=== PATIENT | female | born 1955 | race Caucasian/White ===

== ENCOUNTER 2018-03-06 12:14 | Day surgery (SDC) | payer BC ==
[~2018-03-06 12:14] MED LIST: Buffered Lidocaine 0.9% SYRIN* 5 ML/SYR SYRINGE INTRADERM ONE; Dexamethasone IV* 4 MG/ML 1 ML (4 MG) IV SLOW PU ONE; Famotidine IV* 10 MG/ML 2 ML (20 mg) IV ONE
[2018-03-06] MEDS ORDERED: Famotidine IV* 10 MG/ML 2 ML (20 mg) ONE (12:16)
[2018-03-06] MEDS ORDERED: Buffered Lidocaine 0.9% SYRIN* 5 ML/SYR SYRINGE ONE (12:16)
[2018-03-06] MEDS ORDERED: ceFAZolin 2 GM in NS PREMIX(*) 2 GM/100 ML BAG IVPB ONE (12:16)
[2018-03-06] MEDS ORDERED: Dexamethasone IV* 4 MG/ML 1 ML (4 MG) ONE (12:16)
[2018-03-06] MEDS ORDERED: fentaNYL* 50 MCG/ML 2 ML VIAL (100 MCG VIAL) ONE (12:44)
[2018-03-06] MEDS ORDERED: Midazolam* 1 MG/ML 2 ML VIAL (2 MG) ONE (12:44)
[2018-03-06] MEDS ORDERED: Lidocain 1% EPI 1:100,000 * 30 ML MDV ONE (13:12)
[2018-03-06] MEDS ORDERED: Lidocaine 2% PF * 5 ML VIAL ONE (13:59)
[2018-03-06] MEDS ORDERED: Propofol* 10 MG/ML 20 ML BTL IV PUSH ONE (13:59)
[2018-03-06] MEDS ORDERED: DiMENhydriNATE IV* 50 MG/ML VIAL IV PUSH PRN (14:08)
[2018-03-06] MEDS ORDERED: oxyCODONE/Acetamin 5/325 MG* TAB PO PRN (14:08)
[2018-03-06] MEDS ORDERED: Acetaminophen TAB* 325 MG PO PRN (14:08)
[2018-03-06] MEDS ORDERED: fentaNYL* 50 MCG/ML 2 ML VIAL (100 MCG VIAL) IV PRN (14:08)
[2018-03-06] MEDS ORDERED: Naloxone* 0.4 MG/ML 1 ML VIAL IV PRN (14:08)
[2018-03-06] MEDS ORDERED: Ondansetron INJ* 2 MG/ML VIAL IV PRN (14:08)
--- NOTE | 2018-03-06 14:36 | BRIEFOPN ---
Brief Operative Note - Surgery Procedures: Procedures Pre-OP Diagnoses: uterine ca Post-op Diagnosis: same Procedure: Insertion of powerport Surgeon: Jace Asst: none Anethesia: local, MAC EBL: minimal IVF: minimal Specimen: none Drains: none 8Fr single lumen power port via R SCV
--- NOTE | 2018-03-06 14:52 | RAD ---
INDICATION: chest port placement COMPARISONS: None relevant TECHNIQUE: Fluoroscopy was provided for a vascular access procedure. Total fluoroscopy time is: 41.6 seconds FINDINGS: A right-sided chest port is noted from a subclavian approach with the tip overlying the superior vena cava. IMPRESSION: FLUOROSCOPY WAS PROVIDED FOR A VASCULAR ACCESS PROCEDURE CPT II Codes: G9500
[2018-03-06 15:17] VITALS: BP 122/62
--- NOTE | 2018-04-01 00:19 | OP ---
CC: [facility] * DATE OF OPERATION: 03/06/18 - SDS DATE OF : 55 SURGEON: Kapil Mccormick MD HEAT TREAT TECHNICIAN: None. ANESTHESIA: Local MAC. PRE-OP DIAGNOSIS: Uterine cancer. POST-OP DIAGNOSIS: Uterine cancer. OPERATIVE PROCEDURE: Insertion of PowerPort. ESTIMATED BLOOD LOSS: Minimal. SPECIMEN: None. IMPLANTS: 8-Mac[place] single-lumen PowerPort inserted via the right subclavian vein. DESCRIPTION OF PROCEDURE: The patient was identified in the preoperative area, I marked, and brought to the operating room, placed on the operating table in the supine position. Preoperative antibiotics were given. Sequential devices were placed on bilateral lower extremities. Gentle sedation was given. The patient's right upper chest, neck were prepped and draped in a standard surgical fashion. A time-out was performed. Right subclavian vein was accessed, wire inserted and under fluoroscopy in the appropriate manner. An incision inferior to this was made and a pocket made for the PowerPort. The wire was brought into the separate incision and then the vein was dilated with the given dilators under fluoroscopy. The split-away catheter inserted and the tubing inserted, cut to size, and attached to the PowerPort, which had been pre-flushed. This was then dropped into the pocket and sutured with 0 Prolene sutures in the typical fashion medial and laterally and at the hub. Wound was irrigated and reapproximated in standard fashion. Steri-Strips were applied. The patient tolerated the procedure well. [id number]/[facility] #: [id number] [facility]
== END 2018-03-06 15:15 | disposition home or self-care (01) ==
LOC: OR 12:14
PROVIDERS: ATTEND Surgery
DX: C55 Malignant neoplasm of uterus, part unspecified (principal); E78.5 Hyperlipidemia, unspecified
CPT/HCPCS: 76000; C1788; J0690; J1100; J1642; J2250; J2704; J3010

== ENCOUNTER 2020-05-11 20:20 | Inpatient (IN) ==
[2020-05-11] MEDS ORDERED: Dexamethasone IV 4 MG/ML VIAL 1 ml VIAL IV SLOW PU ONE (22:14)
[2020-05-11] MEDS ORDERED: Lidocaine 4% TOPICAL 50 ML TOP.SOLN TOPICAL ONE (22:40)
[2020-05-11] MEDS ORDERED: Lidocaine 2% JELLY 6 ML TOPICAL ONE (22:59)
[2020-05-11] MEDS ORDERED: Lidocaine 2.5%/Prilocain 2.5% 5 GM TUBE TOPICAL ONE (23:00)
[2020-05-11] MEDS ORDERED: Lidocaine 2.5%/Prilocain 2.5% 5 GM TUBE ONE (23:00)
[2020-05-11 23:31] LABS: ABS Monocytes 0.6 10^3/ul (0-0.8); Eosinophil % 0.4 %; Hematocrit 30 % (35-47); Hemoglobin 10.3 g/dL (12.0-16.0); Lymphocyte % 20.9 %; Mean Corpuscular HGB Conc 35 g/dL (31-36); Mean Corpuscular Hemoglobin 34 pg (27-31); Mean Corpuscular Volume 98 fL (80-97); Platelet Count 252 10^3/uL (150-450); Red Blood Count 3.05 10^6 /uL (3.70-4.87); Red Cell Distribution Width 15 % (10-15); White Blood Count 4.6 10^3/uL (3.5-10.8)
[2020-05-11 23:48] LABS: Albumin 4.2 g/dL (3.2-5.2); Albumin/Globulin Ratio 1.6 (1-3); Calcium 9.4 mg/dL (8.6-10.3); EGFR African American 117.3 (>60); EGFR Non-African American 96.9 (>60); Globulin 2.6 g/dL (2-4); Potassium 3.6 mmol/L (3.5-5.0); Total Bilirubin 0.4 mg/dL (0.2-1.0); Total Protein 6.8 g/dL (6.4-8.9)
[2020-05-12] MEDS ORDERED: HYDROmorphone 0.5 MG/0.5 ML SYRINGE IV SLOW PU ONE (00:23)
[2020-05-12] MEDS ORDERED: Ondansetron 4 mg VIAL 2 MG/ML 2 ml VIAL IV PRN (00:45)
[2020-05-12 06:02] LABS: Urine Appearance Clear; Urine Bilirubin Negative (Negative); Urine Blood 1+ (Negative); Urine Color Straw; Urine Glucose Negative (Negative); Urine Ketones Trace (Negative); Urine Nitrite Negative (Negative); Urine Protein Negative (Negative); Urine Specific Gravity 1.006 (1.010-1.030); Urine Urobilinogen Negative (Negative)
[2020-05-12 06:24] LABS: Urine Bacteria Absent (Absent); Urine Red Blood Cell Trace(0-2/hpf) (Absent); Urine White Blood Cell Trace(0-5/hpf) (Absent)
[2020-05-12] MEDS: Dexamethasone IV 4 MG/ML VIAL 1 ml VIAL IV SLOW PU SCH ×4 (06:34→23:34)
[2020-05-12] MEDS ORDERED: HYDROmorphone 1 MG/1 ML SYRINGE ONE (08:25)
[2020-05-12] MEDS: HYDROmorphone 1 MG/1 ML SYRINGE IV PRN (08:31)
[2020-05-12] MEDS: Morphine ER 15 mg TAB ** extended release PO SCH ×2 (10:25→21:18)
[2020-05-12] MEDS: Lidocaine PATCH 5% PATCH TRANSDERM SCH (10:26)
[2020-05-12] MEDS: Iohexol 300 (CONTRAST) 10 ML SDV IV ONE ×2 (11:50→11:58)
[2020-05-12] MEDS: Lidocaine Patch REMOVE PATCH PATCH OFF SCH (21:29)
[2020-05-13] MEDS: Dexamethasone IV 4 MG/ML VIAL 1 ml VIAL IV SLOW PU SCH ×3 (05:56→17:51)
[2020-05-13 06:26] LABS: ABS Lymphocytes 0.6 10^3/ul (1.0-4.8); ABS Monocytes 0.3 10^3/ul (0-0.8); ABS Neutrophils 4.6 10^3/ul (1.5-7.7); Hematocrit 31 % (35-47); Hemoglobin 10.6 g/dL (12.0-16.0); Lymphocyte % 10.3 %; Mean Corpuscular HGB Conc 34 g/dL (31-36); Mean Corpuscular Hemoglobin 34 pg (27-31); Mean Corpuscular Volume 98 fL (80-97); Mean Platelet Volume 7.3 fL (7.4-10.4); Platelet Count 266 10^3/uL (150-450); Red Blood Count 3.17 10^6 /uL (3.70-4.87); Red Cell Distribution Width 15 % (10-15); White Blood Count 5.4 10^3/uL (3.5-10.8)
[2020-05-13 06:38] LABS: BUN/Creatinine Ratio 24.1 (8-20); Calcium 9.4 mg/dL (8.6-10.3); EGFR African American 126.6 (>60); EGFR Non-African American 104.7 (>60); Potassium 4.1 mmol/L (3.5-5.0)
[2020-05-13] MEDS: Morphine ER 15 mg TAB ** extended release PO SCH ×2 (08:22→20:23)
[2020-05-13] MEDS: Lidocaine PATCH 5% PATCH TRANSDERM SCH (08:23)
[2020-05-13] MEDS: Lidocaine Patch REMOVE PATCH PATCH OFF SCH (20:16)
[2020-05-14] MEDS: Dexamethasone IV 4 MG/ML VIAL 1 ml VIAL IV SLOW PU SCH ×5 (00:05→23:45)
[2020-05-14] MEDS: Lidocaine PATCH 5% PATCH TRANSDERM SCH (08:39)
[2020-05-14] MEDS: Morphine ER 15 mg TAB ** extended release PO SCH ×2 (08:47→20:38)
[2020-05-14] MEDS: Heparin 5000 UNITS/ML 1 mL VIAL SUBCUT SCH ×2 (08:48→20:40)
[2020-05-14] MEDS: Lidocaine Patch REMOVE PATCH PATCH OFF SCH (20:38)
[2020-05-15] MEDS: Dexamethasone IV 4 MG/ML VIAL 1 ml VIAL IV SLOW PU SCH ×3 (05:15→18:17)
[2020-05-15 05:50] LABS: ABS Lymphocytes 0.6 10^3/ul (1.0-4.8); ABS Monocytes 0.5 10^3/ul (0-0.8); ABS Neutrophils 5.2 10^3/ul (1.5-7.7); Hematocrit 32 % (35-47); Lymphocyte % 9.5 %; Mean Corpuscular HGB Conc 34 g/dL (31-36); Mean Corpuscular Hemoglobin 34 pg (27-31); Mean Corpuscular Volume 99 fL (80-97); Mean Platelet Volume 7.4 fL (7.4-10.4); Platelet Count 251 10^3/uL (150-450); Red Blood Count 3.28 10^6 /uL (3.70-4.87); Red Cell Distribution Width 15 % (10-15); White Blood Count 6.3 10^3/uL (3.5-10.8)
[2020-05-15 05:59] LABS: INR 1.2 (0.82-1.09)
[2020-05-15 06:06] LABS: Albumin 3.8 g/dL (3.2-5.2); Albumin/Globulin Ratio 1.5 (1-3); BUN/Creatinine Ratio 30.8 (8-20); Calcium 8.9 mg/dL (8.6-10.3); EGFR African American 143.7 (>60); EGFR Non-African American 118.7 (>60); Globulin 2.6 g/dL (2-4); Potassium 3.8 mmol/L (3.5-5.0); Total Bilirubin 0.3 mg/dL (0.2-1.0); Total Protein 6.4 g/dL (6.4-8.9)
[2020-05-15] MEDS: Lidocaine PATCH 5% PATCH TRANSDERM SCH (09:05)
[2020-05-15] MEDS: Morphine ER 15 mg TAB ** extended release PO SCH ×2 (09:08→21:25)
[2020-05-15] MEDS: Heparin 5000 UNITS/ML 1 mL VIAL SUBCUT SCH ×2 (09:09→21:26)
[2020-05-15] MEDS: Lidocaine Patch REMOVE PATCH PATCH OFF SCH (21:24)
[2020-05-16] MEDS: Dexamethasone IV 4 MG/ML VIAL 1 ml VIAL IV SLOW PU SCH ×5 (00:51→23:53)
[2020-05-16] MEDS: Senna TAB 8.6 mg TAB PO PRN (09:22)
[2020-05-16] MEDS: Morphine ER 15 mg TAB ** extended release PO SCH ×2 (09:22→20:49)
[2020-05-16] MEDS: Heparin 5000 UNITS/ML 1 mL VIAL SUBCUT SCH (09:23)
[2020-05-16] MEDS: Lidocaine PATCH 5% PATCH TRANSDERM SCH (09:24)
[2020-05-16] MEDS: Polyethylene Glycol 3350 17 GM PACKET PO SCH (11:16)
[2020-05-16 20:09] LABS: INR 1.33 (0.82-1.09)
[2020-05-16 20:30] LABS: Activated Partial Thrombo Time >240.0 seconds (26.0-38.0)
[2020-05-16] MEDS: Lidocaine Patch REMOVE PATCH PATCH OFF SCH (20:57)
[2020-05-17] MEDS ORDERED: Lactated Ringers 1000 ml BAG 1,000 ML IV SCH ×3 (00:01→16:00)
[2020-05-17] MEDS: Dexamethasone IV 4 MG/ML VIAL 1 ml VIAL IV SLOW PU SCH ×3 (05:54→18:45)
[2020-05-17] MEDS ORDERED: Buffered Lidocaine 1% SYRIN 1 ml INTRADERM ONE ×3 (06:00→15:37)
[2020-05-17] MEDS: HYDROmorphone 1 MG/1 ML SYRINGE IV PRN ×3 (06:04→14:54)
[2020-05-17] MEDS ORDERED: Bupivacaine 0.25% SDV 30 ML ONE (06:54)
[2020-05-17] MEDS ORDERED: Lidocaine 1% w EPI 1:200,000 SDV 30 ML VIAL ONE (06:54)
[2020-05-17] MEDS ORDERED: Bacitracin INJECTION 50,000 UNITS ONE (06:54)
[2020-05-17] MEDS ORDERED: Artificial Tear OPHTH.OINT 3.5 GM ONE (07:14)
[2020-05-17] MEDS ORDERED: Cisatracurium 2 MG/ML MDV 5 ML ONE (07:15)
[2020-05-17] MEDS ORDERED: Propofol 10 mg/ml 100 ML BTL 0 ML ONE (07:15)
[2020-05-17] MEDS ORDERED: Dexamethasone IV 4 MG/ML VIAL 1 ml VIAL ONE (07:19)
[2020-05-17] MEDS ORDERED: EPHEDrine (Pressors) 50 MG/ML VIAL ONE (07:19)
[2020-05-17] MEDS ORDERED: Propofol 10 MG/ML 20 ML BTL ONE (07:19)
[2020-05-17] MEDS ORDERED: Phenylephrine 40 mcg/mL 10mL (400mcg) SYRINGE ONE (07:19)
[2020-05-17] MEDS ORDERED: fentaNYL 100 mcg/2 ml 50 MCG/ML VIAL ONE (07:19)
[2020-05-17] MEDS ORDERED: Phenylephrine IV 10 MG/ML 1 ml VIAL ONE (07:19)
[2020-05-17] MEDS ORDERED: Ondansetron 4 mg VIAL 2 MG/ML 2 ml VIAL ONE (07:19)
[2020-05-17] MEDS ORDERED: Lidocaine 2% PF 5 ML VIAL ONE (07:19)
[2020-05-17] MEDS ORDERED: Sodium Chloride 0.9% 0 ML ONE (07:19)
[2020-05-17] MEDS ORDERED: Ketamine HCL 50 mg/ml 10 ml VIAL (500 MG) ONE (07:21)
[2020-05-17] MEDS ORDERED: Remifentanil 2 MG VIAL ONE (07:21)
[2020-05-17] MEDS ORDERED: Midazolam 10 mg/10 ml VIAL 1 mg/ml 10 ml VIAL (10 mg) ONE (07:21)
[2020-05-17 08:20] LABS: Activated Partial Thrombo Time 57.6 seconds (26.0-38.0); INR 1.2 (0.82-1.09)
[2020-05-17] MEDS: Polyethylene Glycol 3350 17 GM PACKET PO SCH (09:29)
[2020-05-17] MEDS: Lidocaine PATCH 5% PATCH TRANSDERM SCH (09:30)
[2020-05-17] MEDS: Morphine ER 15 mg TAB ** extended release PO SCH ×2 (09:30→21:34)
[2020-05-17] MEDS: Lidocaine Patch REMOVE PATCH PATCH OFF SCH (21:35)
[2020-05-18] MEDS: Dexamethasone IV 4 MG/ML VIAL 1 ml VIAL IV SLOW PU SCH ×4 (00:22→18:33)
[2020-05-18] MEDS: HYDROmorphone 1 MG/1 ML SYRINGE IV PRN ×4 (05:56→22:38)
[2020-05-18] MEDS: Lidocaine PATCH 5% PATCH TRANSDERM SCH (09:06)
[2020-05-18] MEDS: Polyethylene Glycol 3350 17 GM PACKET PO SCH (09:07)
[2020-05-18] MEDS: Morphine ER 15 mg TAB ** extended release PO SCH ×2 (10:15→20:13)
[2020-05-18] MEDS: Lidocaine Patch REMOVE PATCH PATCH OFF SCH (20:35)
[2020-05-19] MEDS: Dexamethasone IV 4 MG/ML VIAL 1 ml VIAL IV SLOW PU SCH ×4 (00:19→22:26)
[2020-05-19] MEDS: HYDROmorphone 1 MG/1 ML SYRINGE IV PRN ×9 (03:32→22:45)
[2020-05-19] MEDS: Morphine ER 15 mg TAB ** extended release PO SCH ×2 (10:16→22:45)
[2020-05-19] MEDS: Polyethylene Glycol 3350 17 GM PACKET PO SCH (10:23)
[2020-05-19] MEDS: Lidocaine PATCH 5% PATCH TRANSDERM SCH (10:23)
[2020-05-19] MEDS ORDERED: Propofol 10 mg/ml 100 ML BTL 400 ML ONE (13:14)
[2020-05-19] MEDS ORDERED: fentaNYL 250 mcg/5 ml 50 MCG/ML 5 ml VIAL (250 MCG) ONE (13:20)
[2020-05-19] MEDS ORDERED: Propofol 10 MG/ML 20 ML BTL ONE ×2 (13:20→18:20)
[2020-05-19] MEDS ORDERED: Dexamethasone IV 4 MG/ML VIAL 1 ml VIAL ONE (13:20)
[2020-05-19] MEDS ORDERED: Succinylcholine 200 mg VIAL 20 mg/ml 10 ml VIAL (200 mg) ONE (13:21)
[2020-05-19] MEDS ORDERED: Rocuronium 50 mg VIAL 10 mg/ml 5 ml VIAL (50 mg) ONE (13:21)
[2020-05-19] MEDS ORDERED: Midazolam 2 mg/2 ml VIAL 1 mg/ml 2 ml VIAL (2 mg) ONE (13:21)
[2020-05-19] MEDS ORDERED: Lidocaine 2% PF 5 ML VIAL ONE (13:25)
[2020-05-19] MEDS ORDERED: Bacitracin INJECTION 50,000 UNITS ONE (13:27)
[2020-05-19] MEDS ORDERED: Remifentanil 2 MG VIAL ONE ×2 (13:27→16:52)
[2020-05-19] MEDS ORDERED: Bupivacaine 0.25% SDV 30 ML ONE (13:27)
[2020-05-19] MEDS ORDERED: Artificial Tear OPHTH.OINT 3.5 GM ONE (13:27)
[2020-05-19] MEDS ORDERED: Lidocaine 1% w EPI 1:200,000 SDV 30 ML VIAL ONE (13:28)
[2020-05-19] MEDS ORDERED: Famotidine IV 10 MG/ML 2 ml VIAL (20 mg) IV SLOW PU ONE (13:42)
[2020-05-19] MEDS ORDERED: ceFAZolin 2 GM PREMIX 2 GM/50 ML BAG ONE (13:47)
[2020-05-19] MEDS ORDERED: Famotidine IV 10 MG/ML 2 ml VIAL (20 mg) ONE (13:47)
[2020-05-19] MEDS ORDERED: Hydrocortisone INJ 100 MG/2ML 2 ML VIAL ONE (14:23)
[2020-05-19] MEDS ORDERED: Ketamine HCL 50 mg/ml 10 ml VIAL (500 MG) ONE (16:03)
[2020-05-19] MEDS ORDERED: EPHEDrine (Pressors) 50 MG/ML VIAL ONE (18:08)
[2020-05-19] MEDS ORDERED: Morphine 4 MG/ML VIAL (1 ml) IV PRN (19:56)
[2020-05-19] MEDS ORDERED: Naloxone 0.4 mg VIAL 0.4 mg/ml 1 ml VIAL IV PRN (19:56)
[2020-05-19] MEDS ORDERED: oxyCODONE/Acetamin 5/325 mg TAB PO PRN (19:56)
[2020-05-19] MEDS ORDERED: Ondansetron 4 mg VIAL 2 MG/ML 2 ml VIAL IV PRN (19:56)
[2020-05-19] MEDS ORDERED: fentaNYL 100 mcg/2 ml 50 MCG/ML VIAL ONE ×2 (19:59→20:38)
[2020-05-19] MEDS: fentaNYL 100 mcg/2 ml 50 MCG/ML VIAL IV PRN ×4 (20:01→20:48)
[2020-05-19] MEDS ORDERED: HYDROmorphone 1 MG/1 ML SYRINGE ONE (20:14)
[2020-05-19] MEDS ORDERED: oxyCODONE/Acetamin 5/325 mg TAB ONE (20:40)
[2020-05-19] MEDS: Lidocaine Patch REMOVE PATCH PATCH OFF SCH (22:27)
[2020-05-19] MEDS ORDERED: LACTATED RINGERS 1000 ML BAG IV SCH (23:00)
[2020-05-20] MEDS: Dexamethasone IV 4 MG/ML VIAL 1 ml VIAL IV SLOW PU SCH ×4 (00:38→18:30)
[2020-05-20] MEDS: HYDROmorphone 1 MG/1 ML SYRINGE IV PRN ×5 (01:18→10:01)
[2020-05-20] MEDS: Lidocaine PATCH 5% PATCH TRANSDERM SCH (08:50)
[2020-05-20] MEDS: Polyethylene Glycol 3350 17 GM PACKET PO SCH (08:53)
[2020-05-20] MEDS: Morphine ER 15 mg TAB ** extended release PO SCH ×2 (08:54→21:40)
[2020-05-20] MEDS: Lidocaine Patch REMOVE PATCH PATCH OFF SCH (21:42)
[2020-05-21] MEDS: Dexamethasone IV 4 MG/ML VIAL 1 ml VIAL IV SLOW PU SCH ×5 (00:05→23:47)
[2020-05-21] MEDS: Morphine ER 15 mg TAB ** extended release PO SCH ×2 (09:09→21:36)
[2020-05-21] MEDS: Lidocaine PATCH 5% PATCH TRANSDERM SCH (09:10)
[2020-05-21] MEDS: Polyethylene Glycol 3350 17 GM PACKET PO SCH (09:10)
[2020-05-21] MEDS: Lidocaine Patch REMOVE PATCH PATCH OFF SCH (21:41)
[2020-05-22] MEDS: Dexamethasone IV 4 MG/ML VIAL 1 ml VIAL IV SLOW PU SCH ×2 (05:57→12:14)
[2020-05-22] MEDS: Morphine ER 15 mg TAB ** extended release PO SCH (09:07)
[2020-05-22] MEDS: Senna TAB 8.6 mg TAB PO PRN (09:07)
[2020-05-22] MEDS: Polyethylene Glycol 3350 17 GM PACKET PO SCH (09:07)
[2020-05-22] MEDS: Lidocaine PATCH 5% PATCH TRANSDERM SCH (09:08)
[2020-05-22 11:05] VITALS: BP 129/66
== END 2020-05-22 15:28 | disposition home health service (06) | DRG 304 ==
LOC: ED 20:20 → SSU 23:53
PROVIDERS: ADMIT Internal Medicine; ATTEND Internal Medicine Hematology & Oncology